=== PATIENT | female | born 1990 | race Caucasian/White ===

== ENCOUNTER → 2024-01-14 13:34 | Outpatient (REF) | payer OTHER, SELFPAY | LOC: RAD 13:34 | PROVIDERS: ATTENDING PHYSICIAN Obstetrics & Gynecology | DX: N92.0 Excessive and frequent menstruation with regular cycle (principal) | CPT/HCPCS: 76830; 76856 ==

== ENCOUNTER → 2025-02-02 13:54 | Outpatient (REF) | payer OTHER, SELFPAY | LOC: RAD 13:54 | PROVIDERS: ATTENDING PHYSICIAN Obstetrics & Gynecology; FAMILY PHYSICIAN Nurse Practitioner Adult Health | DX: N93.9 Abnormal uterine and vaginal bleeding, unspecified (principal) | CPT/HCPCS: 76830; 76856 ==

== ENCOUNTER → 2025-02-10 07:22 | Outpatient (REF) | payer OTHER, SELFPAY | LOC: HWRAD 07:22 | PROVIDERS: ATTENDING PHYSICIAN Obstetrics & Gynecology | DX: E07.9 Disorder of thyroid, unspecified (principal) | CPT/HCPCS: 76536 ==